=== PATIENT | female | born 1990 | race Caucasian/White ===

== ENCOUNTER 2023-11-22 11:18 | Inpatient (IN) | payer MEDICAID ==
[~2023-11-22] VITALS: Ht 165.1 cm; Wt 103.0 kg
[~2023-11-22 11:18] MED LIST: BENZ2TAB50 PO; DIVA-139 PO; FLUO20CA19 PO; LORA2TAB89 PO; OLAN1TAB19 PO
[2023-11-22 14:04] LABS: Basophils # (auto) 0 10 ^3/uL (0-0.2); Basophils % (auto) 0.2 % (0.0-2.0); Eosinophils # (auto) 0 10 ^3/uL (0-0.8); Hematocrit 39.4 % (36.0-46.0); Hemoglobin 13.4 g/dL (12.2-16.2); Lymphocytes # (auto) 1.4 10 ^3/uL (0.4-5.4); Lymphocytes % (auto) 15.2 % (10.0-50.0); Mean Corpuscular Hemoglobin 31.9 pg (28.0-32.0); Mean Corpuscular Hgb Conc. 33.9 g/dL (32.0-36.0); Monocytes # (auto) 0.7 10 ^3/uL (0-1.3); Monocytes % (auto) 7.3 % (0.0-12.0); Neutrophils # (auto) 7.2 10 ^3/uL (1.6-8.6); Neutrophils % (auto) 77.3 % (37.0-80.0); Nucleated Red Blood Cells % 0.1 %; Platelet Count (auto) 183 10^3/uL (140-450); Red Blood Cells 4.19 10^6/uL (4.0-5.20); Red Cell Distribution Width 13.6 % (11.8-14.3); White Blood Cell 9.3 10^3/uL (4.4-10.8)
[2023-11-22 14:12] LABS: Chloride 105 mmol/L (98-107); Sodium 138 mmol/L (136-145)
[2023-11-22 14:13] LABS: Anion Gap 8 (5-15); Carbon Dioxide 25 mmol/L (20-31)
[2023-11-22 14:18] LABS: BUN/Creatinine Ratio 8.9 (10.0-20.0); Blood Urea Nitrogen 9 mg/dL (9-23); Glucose 108 mg/dL (74-106); INR 1.07 (0.9-1.15); Prothrombin Time 11.3 sec (9.3-11.8)
[2023-11-22] MEDS: SODIUM CHLORIDE 0.9% 1,000 ML IV ONE (14:52)
[2023-11-22] MEDS: HYDROcodone-ACET 10/325MG TAB PO ONE (14:52)
[2023-11-22 15:16] VITALS: PULSE 85; RESP 14; O2SAT 91
[2023-11-22] MEDS ORDERED: NITROGLYCERIN 0.4 MG SL TAB SL PRN (16:15)
[2023-11-22 17:35] VITALS: BP 107/46; PULSE 86; RESP 16; TEMP 98.2; O2SAT 98
[2023-11-22 18:05] LABS: Urine Bacteria MANY /hpf (None Seen); Urine Blood 1+ /uL (Negative); Urine Clarity Ex.Turbid (Clear); Urine Color Yellow (Yellow); Urine Mucus MODERATE (None Seen); Urine Protein, UAD 2+ (Negative); Urine Specific Gravity 1.028 (1.001-1.035); Urine Urobilinogen 8 mg/dL (Negative); Urine WBC 23 /hpf (0 - 5)
[2023-11-22 20:00] VITALS: PULSE 81; RESP 18; O2SAT 94
[2023-11-22 21:00] VITALS: BP 91/60; PULSE 81; RESP 18; TEMP 97.6; O2SAT 94
[2023-11-22] MEDS: ONDANSETRON HCL 4 MG/2 ML VIAL IV PRN (21:32)
[2023-11-22] MEDS: MORPHINE SULFATE INJ 2 MG/ml SYRG IV PRN (21:33)
[2023-11-23] VITALS (8 sets, daily range): BP systolic 88–106; BP diastolic 39–68; PULSE 57–99; RESP 16–18; TEMP 97.6–99.4; O2SAT 92–98
[2023-11-23] MEDS: ceFAZolin 2 GM/D5W100ml 100 ML IV ONE (07:01)
[2023-11-23] MEDS: ACETAMINOPHEN IV 1000 MG/100ML (10MG/ML) IV ONE (07:15)
[2023-11-23] MEDS: CELECOXIB 100 MG CAP PO ONE (07:15)
[2023-11-23] MEDS: GABAPENTIN 400 MG CAP PO ONE (07:15)
[2023-11-23 07:19] LABS: Basophils # (auto) 0 10 ^3/uL (0-0.2); Basophils % (auto) 0.3 % (0.0-2.0); Eosinophils # (auto) 0 10 ^3/uL (0-0.8); Eosinophils % (auto) 0.5 % (0.0-7.0); Hematocrit 35.8 % (36.0-46.0); Hemoglobin 12.2 g/dL (12.2-16.2); Lymphocytes # (auto) 1.9 10 ^3/uL (0.4-5.4); Lymphocytes % (auto) 31.8 % (10.0-50.0); Mean Corpuscular Hemoglobin 32.6 pg (28.0-32.0); Mean Corpuscular Volume 96.1 fL (80.0-100.0); Monocytes # (auto) 0.9 10 ^3/uL (0-1.3); Monocytes % (auto) 14.7 % (0.0-12.0); Neutrophils # (auto) 3.2 10 ^3/uL (1.6-8.6); Neutrophils % (auto) 52.7 % (37.0-80.0); Nucleated Red Blood Cells % 0.1 %; Platelet Count (auto) 154 10^3/uL (140-450); Red Blood Cells 3.73 10^6/uL (4.0-5.20); Red Cell Distribution Width 14.2 % (11.8-14.3); White Blood Cell 6.1 10^3/uL (4.4-10.8)
[2023-11-23] MEDS: CELECOXIB 100 MG CAP ONE (07:20)
[2023-11-23] MEDS: BUPIVACAINE HCL 50 ML ONE (07:21)
[2023-11-23] MEDS: BUPIVACAINE 0.25% INJ 50ML VIAL ONE (07:21)
[2023-11-23] MEDS: GABAPENTIN 400 MG CAP ONE (07:21)
[2023-11-23] MEDS: ACETAMINOPHEN IV 100 ML IV ONE (07:21)
[2023-11-23] MEDS ORDERED: DexAMETHasone SOD PHOS 10MG/1ML VIAL INJ ONE ×2 (07:26)
[2023-11-23] MEDS ORDERED: PROPOFOL 10 MG/ML 20 ML IV ONE (07:26)
[2023-11-23] MEDS ORDERED: GLYCOPYRROLATE 0.2 MG/ML 1ML VIAL ONE (07:26)
[2023-11-23] MEDS ORDERED: KETOROLAC TROMETH 30 MG/ML 1ML VIAL ONE (07:26)
[2023-11-23] MEDS ORDERED: ONDANSETRON HCL 4 MG/2 ML VIAL ONE (07:26)
[2023-11-23] MEDS ORDERED: LIDOCAINE 2% (LOCAL ANESTH.) PF 5ml SDV ONE (07:26)
[2023-11-23] MEDS ORDERED: fentaNYL CITRATE 100 MCG/2 ML VL ONE (07:27)
[2023-11-23] MEDS ORDERED: KETAMINE 50mg/ML 1ml syringe ONE (07:27)
[2023-11-23] MEDS ORDERED: EPINEPHrine HCL 1 MG/1 ML AMP ONE (07:27)
[2023-11-23] MEDS ORDERED: LIDOCAINE HCL 2% TOP JELLY 5ML TOP ONE (07:31)
[2023-11-23 07:50] LABS: Alanine Aminotransferase 12 U/L (7-40); Albumin 3.4 g/dL (3.2-4.8); Alkaline Phosphatase 54 U/L (46-116); Anion Gap 8 (5-15); Aspartate Aminotransferase 19 U/L (13-40); BUN/Creatinine Ratio 8.8 (10.0-20.0); Blood Urea Nitrogen 7 mg/dL (9-23); Calcium 8.7 mg/dL (8.7-10.4); Carbon Dioxide 24 mmol/L (20-31); Chloride 108 mmol/L (98-107); Glucose 102 mg/dL (74-106); Potassium 3.8 mmol/L (3.5-5.1); Sodium 140 mmol/L (136-145)
[2023-11-23 07:51] LABS: Bilirubin, Total 0.4 mg/dL (0.2-1.0); Total Protein 5.4 g/dL (5.7-8.2)
[2023-11-23 12:08] LABS: Amphetamine Screen, Urine Neg (NEGATIVE)
[2023-11-23 12:09] LABS: Barbiturate Scree,Urine Neg (NEGATIVE); Benzodiazephine Screen, Urine Neg (NEGATIVE); Cannabinoid Screen, Urine Neg (NEGATIVE); Cocaine Screen, Urine Neg (NEGATIVE); Opiate Scree,Urine Neg (NEGATIVE); Phencyclidine Screen, Urine Neg (NEGATIVE)
[2023-11-24] VITALS (9 sets, daily range): BP systolic 97–115; BP diastolic 48–77; PULSE 78–98; RESP 15–18; TEMP 97.6–99; O2SAT 91–98
[2023-11-24] MEDS ORDERED: BUPIVACAINE 0.5% MPF INJ 30ML SDV IJ ONE (07:38)
[2023-11-24] MEDS: ceFAZolin 2 GM/D5W100ml 100 ML IV ONE (08:50)
[2023-11-24] MEDS ORDERED: fentaNYL CITRATE 100 MCG/2 ML VL ONE (08:55)
[2023-11-24] MEDS ORDERED: MIDAZOLAM HCL 2MG/2ML 2ml VIAL (1mg/ml) ONE (08:55)
[2023-11-24] MEDS ORDERED: MEPERIDINE HCL (50 MG/ML) 1 ML VIAL ONE (08:56)
[2023-11-24] MEDS: cefTRIAXone 1GM/50ML D5W 50 ML IV SCH (09:00)
[2023-11-24] MEDS ORDERED: ONDANSETRON HCL 4 MG/2 ML VIAL IV ONE (09:15)
[2023-11-24] MEDS ORDERED: ePHEDrine SULFATE 50 MG/ML AMP IV PRN (09:15)
[2023-11-24] MEDS ORDERED: KETOROLAC TROMETH 30 MG/ML 1ML VIAL IV ONE (09:15)
[2023-11-24] MEDS ORDERED: HYDROmorphone HCL 2 MG/ML VL/or syr IV PRN (09:15)
[2023-11-24] MEDS ORDERED: hydrALAZINE HCL 20 MG/ML VL IV PRN (09:15)
[2023-11-24] MEDS ORDERED: MIDAZOLAM HCL 2MG/2ML 2ml VIAL (1mg/ml) IV PRN (09:15)
[2023-11-24] MEDS: BUPIVACAINE 0.25% INJ 50ML VIAL ONE (09:19)
[2023-11-24] MEDS ORDERED: PROPOFOL 10 MG/ML 20 ML IV ONE (09:23)
[2023-11-24] MEDS ORDERED: DexAMETHasone SOD PHOS 10MG/1ML VIAL INJ ONE (09:23)
[2023-11-24] MEDS: MORPHINE SULFATE 4 MG/ML SYR/VIAL IV PRN (11:02)
[2023-11-24] MEDS: D5W/SOD CHL 0.45%/KCL 20MEQ 1,000 ML IV SCH (12:28)
[2023-11-24 14:04] LABS: Free T4 (Free Thyroxine) 0.98 ng/dL (0.89-1.76); T3 Total 1.12 ng/mL (0.60-1.81)
[2023-11-24] MEDS ORDERED: SUCCINYLCHOLINE CHLORIDE 20 MG/ML 10ML VIAL IV ONE (14:50)
[2023-11-25] VITALS (8 sets, daily range): BP systolic 101–132; BP diastolic 56–75; PULSE 64–110; RESP 16–20; TEMP 96.9–98.9; O2SAT 93–100
[2023-11-25 05:31] LABS: Calcium 9.2 mg/dL (8.7-10.4); Chloride 106 mmol/L (98-107); Potassium 4.1 mmol/L (3.5-5.1); Sodium 139 mmol/L (136-145)
[2023-11-25 05:32] LABS: Anion Gap 5 (5-15); Basophils # (auto) 0 10 ^3/uL (0-0.2); Basophils % (auto) 0.2 % (0.0-2.0); Carbon Dioxide 28 mmol/L (20-31); Eosinophils # (auto) 0 10 ^3/uL (0-0.8); Hematocrit 33.4 % (36.0-46.0); Hemoglobin 11.7 g/dL (12.2-16.2); Lymphocytes % (auto) 16.1 % (10.0-50.0); Mean Corpuscular Hemoglobin 32.9 pg (28.0-32.0); Monocytes # (auto) 1.4 10 ^3/uL (0-1.3); Monocytes % (auto) 10.9 % (0.0-12.0); Neutrophils # (auto) 9.1 10 ^3/uL (1.6-8.6); Neutrophils % (auto) 72.8 % (37.0-80.0); Platelet Count (auto) 173 10^3/uL (140-450); Red Blood Cells 3.55 10^6/uL (4.0-5.20); Red Cell Distribution Width 13.6 % (11.8-14.3); White Blood Cell 12.5 10^3/uL (4.4-10.8)
[2023-11-25 05:37] LABS: Blood Urea Nitrogen 6 mg/dL (9-23); Glucose 119 mg/dL (74-106)
[2023-11-25] MEDS: CYANOCOBALAMIN (B-12) 1000 MCG/1 ML VIAL IM ONE (07:02)
[2023-11-25] MEDS: MORPHINE SULFATE INJ 2 MG/ml SYRG IV PRN (22:26)
[2023-11-26] VITALS (9 sets, daily range): BP systolic 102–124; BP diastolic 61–79; PULSE 70–96; RESP 16–20; TEMP 36.6; O2SAT 90–100
[2023-11-26] MEDS: DOCUSATE SOD 100 MG CAP PO PRN (03:46)
[2023-11-26 06:38] LABS: Chloride 104 mmol/L (98-107); Potassium 4.3 mmol/L (3.5-5.1); Sodium 137 mmol/L (136-145)
[2023-11-26 06:41] LABS: Anion Gap 5 (5-15); Carbon Dioxide 28 mmol/L (20-31)
[2023-11-26 06:42] LABS: BUN/Creatinine Ratio 10.3 (10.0-20.0); Blood Urea Nitrogen 6 mg/dL (9-23); Glucose 132 mg/dL (74-106)
[2023-11-26 07:11] LABS: Basophils # (auto) 0 10 ^3/uL (0-0.2); Basophils % (auto) 0.3 % (0.0-2.0); Eosinophils # (auto) 0 10 ^3/uL (0-0.8); Eosinophils % (auto) 0.2 % (0.0-7.0); Hematocrit 34.9 % (36.0-46.0); Hemoglobin 12.2 g/dL (12.2-16.2); Lymphocytes # (auto) 1.9 10 ^3/uL (0.4-5.4); Lymphocytes % (auto) 19.1 % (10.0-50.0); Mean Corpuscular Hemoglobin 32.7 pg (28.0-32.0); Mean Corpuscular Hgb Conc. 35.1 g/dL (32.0-36.0); Mean Corpuscular Volume 93.3 fL (80.0-100.0); Monocytes # (auto) 1.3 10 ^3/uL (0-1.3); Monocytes % (auto) 12.7 % (0.0-12.0); Neutrophils # (auto) 6.7 10 ^3/uL (1.6-8.6); Neutrophils % (auto) 67.7 % (37.0-80.0); Nucleated Red Blood Cells % 0.1 %; Platelet Count (auto) 172 10^3/uL (140-450); Red Blood Cells 3.74 10^6/uL (4.0-5.20); Red Cell Distribution Width 13.9 % (11.8-14.3); White Blood Cell 9.9 10^3/uL (4.4-10.8)
[2023-11-26] MEDS ORDERED: CEPH250C PO (11:22)
[2023-11-27 01:00] VITALS: BP 115/70; PULSE 93; RESP 18; TEMP 99.9; O2SAT 93
[2023-11-27 05:00] VITALS: BP 111/60; PULSE 88; RESP 18; TEMP 99.7; O2SAT 92
[2023-11-27 08:00] VITALS: PULSE 88; RESP 16; O2SAT 93
[2023-11-27 09:00] VITALS: BP 92/60; PULSE 88; RESP 16; TEMP 98.8; O2SAT 93
== END 2023-11-27 14:51 | disposition home or self-care (01) | DRG 313 ==
LOC: EDBD 11:18 → ER 11:18 → EDUNIT# 11:18 → OVERFLOW 16:17 → EAST 18:11
PROVIDERS: ADMIT Internal Medicine; ATTEND Internal Medicine
PROC: 0QSH04Z Reposition Left Tibia with Internal Fixation Device, Open Approach (ICD-10-PCS; principal; 2023-11-24 08:50)
DX: S82.852A Displaced trimalleolar fracture of left lower leg, initial encounter for closed fracture (principal); F31.9 Bipolar disorder, unspecified; F41.9 Anxiety disorder, unspecified; N39.0 Urinary tract infection, site not specified; W18.39XA Other fall on same level, initial encounter; Y93.89 Activity, other specified; Y92.89 Other specified places as the place of occurrence of the external cause; Y99.8 Other external cause status; Z79.899 Other long term (current) drug therapy
CPT/HCPCS: 36415; 71045; 73600; 73610; 76000; 80048; 80053; 80307; 81001; 82306; 82607; 83036; 84439; 84443; 84480; 84702; 85025; 85610; 86850; 86900; 86901; 87086; 96360; 97110; 97116; 97163; 97530; G0378; J0131; J0171; J0330; J1100; J1885; J2001; J2250; J2405; J2704; J3490

== ENCOUNTER 2023-12-24 09:49 | Emergency (ER) | payer MEDICAID ==
[~2023-12-24] VITALS: Ht 157.5 cm; Wt 104.0 kg
[~2023-12-24 09:49] MED LIST changes: +CEPH250C PO
[2023-12-24 10:46] VITALS: BP 105/57; PULSE 102; RESP 18; TEMP 97; O2SAT 98
== END 2023-12-24 10:49 | disposition home or self-care (01) ==
LOC: ER 09:49
DX: Z48.00 Encounter for change or removal of nonsurgical wound dressing (principal); F41.9 Anxiety disorder, unspecified; F32.A Depression, unspecified; Z79.899 Other long term (current) drug therapy

== ENCOUNTER 2024-07-07 11:19 | Emergency (ER) | payer MEDICAID ==
[~2024-07-07] VITALS: Ht 160 cm; Wt 90.9 kg
[2024-07-07 12:05] VITALS: BP 94/80; PULSE 84; RESP 16; TEMP 96.7; O2SAT 100
--- NOTE | 2024-07-07 13:03 | DVH ---
Indication: fall. midline back pain. r/o fracture Technique: 2 views thoracic spine Comparison: None FINDINGS/IMPRESSION: The thoracic vertebral body heights are maintained. Moderate multilevel disc space narrowing with en dplate sclerosis. Alignment preserved.
[2024-07-07] MEDS ORDERED: ACET-1882 PO (13:57)
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
== END 2024-07-07 13:58 | disposition home or self-care (01) ==
LOC: EDUNIT# 11:19 → EDBD 11:19 → ER 11:22
DX: M54.6 Pain in thoracic spine (principal); F32.A Depression, unspecified; F41.9 Anxiety disorder, unspecified; W18.39XA Other fall on same level, initial encounter; Y93.67 Activity, basketball; Y92.310 Basketball court as the place of occurrence of the external cause; Y99.8 Other external cause status
CPT/HCPCS: 72070

== ENCOUNTER 2024-09-09 12:05 | Emergency (ER) | payer MEDICAID ==
[~2024-09-09] VITALS: Ht 157.5 cm; Wt 91.0 kg
[~2024-09-09 12:05] MED LIST changes: +ACET-1882 PO
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
[2024-09-09 15:22] VITALS: BP 100/55; PULSE 84; RESP 18; TEMP 98.4; O2SAT 98
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
[2024-09-09] MEDS ORDERED: MICO2CRE60 EX (16:16)
== END 2024-09-09 18:02 | disposition home or self-care (01) ==
LOC: EDBD 12:05 → ER 12:05
DX: S46.911A Strain of unspecified muscle, fascia and tendon at shoulder and upper arm level, right arm, initial encounter (principal); S29.011A Strain of muscle and tendon of front wall of thorax, initial encounter; S39.012A Strain of muscle, fascia and tendon of lower back, initial encounter; R21 Rash and other nonspecific skin eruption; F41.9 Anxiety disorder, unspecified; F32.A Depression, unspecified; Z79.899 Other long term (current) drug therapy; Y08.89XA Assault by other specified means, initial encounter; Y93.89 Activity, other specified; Y92.098 Other place in other non-institutional residence as the place of occurrence of the external cause; Y99.8 Other external cause status
CPT/HCPCS: 71046; 73030